=== PATIENT | male | born 1965 | race African-American/Black ===

== ENCOUNTER 2018-09-04 16:30 | Emergency (ER) | payer MEDICARE, MEDICAID ==
[~2018-09-04] VITALS: Ht 180.3 cm; Wt 91.0 kg
[~2018-09-04 16:30] MED LIST: CYCL5TAB10; IBUP-777; TRAM50TA94
[2018-09-04] MEDS ORDERED: KETOROLAC 30MG/ML VIAL IV ONE (19:00)
[2018-09-04] MEDS ORDERED: METHOCARBAMOL 500MG TABLET PO ONE (19:00)
[2018-09-04 19:07] LABS: BASOPHILS % 1.2 % (0.0-2.0); EOSINOPHILS % 2.7 % (0.0-5.0); HEMATOCRIT. 42.9 % (42.0-52.0); HEMOGLOBIN. 14.2 g/dL (14.0-18.0); LYMPHOCYTES % 40.5 % (20.0-50.0); MEAN CORPUSCULAR HEMOGLOBIN 29.5 pg (28.0-32.0); MEAN CORPUSCULAR VOLUME 89.3 fL (80.0-94.0); MEAN PLATELET VOLUME 9.9 fl (7.4-10.4); MONOCYTES % 8.5 % (2.0-8.0); NEUTROPHILS % 47.1 % (40.0-76.0); PLATELET 150 x1000/uL (130-400); RED BLOOD CELL COUNT 4.81 mill/uL (4.7-6.1)
[2018-09-04 19:08] LABS: CHLORIDE 106 mEq/L (98-107)
[2018-09-04 20:35] VITALS: BP 122/82
== END 2018-09-04 20:37 | disposition home or self-care (01) ==
LOC: ER 18:05
DX: M54.6 Pain in thoracic spine (principal); M54.12 Radiculopathy, cervical region; M79.602 Pain in left arm; R05 Cough; E78.00 Pure hypercholesterolemia, unspecified; F12.10 Cannabis abuse, uncomplicated; Z87.891 Personal history of nicotine dependence; Z79.899 Other long term (current) drug therapy
CPT/HCPCS: 36415; 71045; 72040; 80048; 84484; 85025; 85379; 93005; 96374; 99284; J1885

== ENCOUNTER 2024-01-27 10:04 | Emergency (ER) | payer BC, MEDICAID ==
[~2024-01-27] VITALS: Ht 180.3 cm; Wt 82.0 kg
[2024-01-27 10:11] VITALS: O2SAT 98
[2024-01-27 10:46] LABS: BASOPHILS % 2.6 % (0.0-2.0); DIFFERENTIAL COMMENT 0; EOSINOPHILS % 1.4 % (0.0-5.0); HEMOGLOBIN. 10.6 g/dL (14.0-18.0); LYMPHOCYTES % 57.1 % (20.0-50.0); MEAN CORPUSCULAR HEMOGLOBIN 33.3 pg (28.0-32.0); MEAN CORPUSCULAR HGB CONC 33.2 g/dL (31.0-37.0); MEAN CORPUSCULAR VOLUME 100.3 fL (80.0-94.0); MEAN PLATELET VOLUME 9.3 fl (7.4-10.4); MONOCYTES % 6.2 % (2.0-8.0); NEUTROPHILS % 32.7 % (40.0-76.0); PLATELET 104 x1000/uL (130-400); RED BLOOD CELL COUNT 3.19 mill/uL (4.7-6.1); RED CELL DISTRIBUTION WIDTH 19.5 % (11.6-14.6); WHITE BLOOD COUNT 3.7 x1000/uL (4.5-11.0)
[2024-01-27 10:56] LABS: CHLORIDE 117 mEq/L (98-107); SODIUM 148 mEq/L (136-145)
[2024-01-27 10:57] LABS: CARBON DIOXIDE 27 mEq/L (21-32)
[2024-01-27 10:58] LABS: CALCIUM 7.7 mg/dL (8.7-10.4)
[2024-01-27 11:02] LABS: GLUCOSE 67 mg/dL (70-105); UREA NITROGEN BLOOD 6 mg/dL (9-23)
[2024-01-27 11:03] LABS: TROPONIN I HIGH SENSITIVITY 7 ng/L (3.0-53)
[2024-01-27 11:20] LABS: ETHANOL BLOOD 212 mg/dL (<10)
[2024-01-27 11:21] LABS: ALANINE AMINOTRANSFERASE 34 IU/L (10-49); ALBUMIN 2.7 g/dL (3.2-4.8); ASPARTATE AMINOTRANSFERASE 88 IU/L (<34); BILIRUBIN DIRECT 0.5 mg/dL (<=3.0); BILIRUBIN TOTAL 0.9 mg/dL (0.1-1.0); PROTEIN TOTAL 7.1 g/dL (6.0-8.3)
[2024-01-27 11:56] LABS: INR 1.2; PROTHROMBIN TIME 13.5 sec (9.6-11.0)
[2024-01-27] MEDS: SODIUM CHLORIDE 0.9% 1,000 ML IV ONE (11:57)
[2024-01-27] MEDS: CHLORDIAZEPOXIDE 25MG CAPSULE PO ONE (11:57)
[2024-01-27] MEDS: PANTOPRAZOLE SODIUM 40 MG/VIAL IV ONE (11:57)
[2024-01-27 16:25] VITALS: BP 131/81; PULSE 78; RESP 18; TEMP 98.6
== END 2024-01-27 16:33 | disposition short-term general hospital (02) ==
LOC: ER 10:04 → EDBEDREQ 12:50 → ER 16:33
DX: K92.2 Gastrointestinal hemorrhage, unspecified (principal); E87.0 Hyperosmolality and hypernatremia; E78.00 Pure hypercholesterolemia, unspecified; F12.10 Cannabis abuse, uncomplicated
CPT/HCPCS: 80076; 80048; 80320; 83880; 85025; 85610; 86850; 86900; 86901; 84484; 36415; 71045; 93005; 96361; 96374; 99285; C9113; J7030; G0480